=== PATIENT | female | born 1965 ===

== ENCOUNTER 2017-09-23 06:16 | Inpatient (IN) | payer OTHER ==
[~2017-09-23] VITALS: Ht 165.1 cm; Wt 86.6 kg
[2017-09-23] VITALS (12 sets, daily range): BP systolic 98–123; BP diastolic 17–75
[2017-09-23] MEDS ORDERED: Vancomycin 1gm inj IVPB ONE (07:07)
[2017-09-23] MEDS ORDERED: Bupivacaine 0.25% Inj 30ml INJ ONE (07:07)
[2017-09-23] MEDS ORDERED: Gelfoam Absorbable 1gm powder pkt TOPIC ONE (07:07)
[2017-09-23] MEDS ORDERED: Thrombin 5000 units TOPIC ONE (07:07)
[2017-09-23] MEDS ORDERED: Thrombin 5000 units spray kit TOPIC ONE (07:07)
[2017-09-23] MEDS ORDERED: Bacitracin 50000 Units Vial ONE (07:08)
[2017-09-23] MEDS ORDERED: OMEPRAZOLE40 M1 ORAL (07:24)
[2017-09-23] MEDS ORDERED: Sterile Water Irrig 1000ml IRRIG ONE (07:30)
[2017-09-23] MEDS ORDERED: Midazolam 2mg/2ml Inj ONE (07:30)
[2017-09-23] MEDS ORDERED: Glycopyrrolate 0.2mg/ml 1ml Vial ONE (07:30)
[2017-09-23] MEDS ORDERED: Neostigmine 1mg/ml 10ml Inj ONE (07:30)
[2017-09-23] MEDS ORDERED: Nimbex 2mg/ml Inj 10ML IVP ONE (07:30)
[2017-09-23] MEDS ORDERED: NS Irrig 1000ml ONE (07:30)
[2017-09-23] MEDS ORDERED: Propofol 200mg/20ml IV ONE (07:30)
[2017-09-23] MEDS ORDERED: Ketorolac 30mg Inj ONE (07:30)
[2017-09-23] MEDS ORDERED: LR 1000ml ONE (07:30)
[2017-09-23] MEDS ORDERED: Sodium Chloride 10ml vial INJ ONE (07:30)
[2017-09-23] MEDS ORDERED: fentaNYL 100 mcg/2 mL IV ONE (07:30)
[2017-09-23] MEDS ORDERED: Lidocaine 1% MPF 10mg/ml 5ml ONE (07:30)
[2017-09-23] MEDS ORDERED: Propofol 1,000mg/ 100ml btl IV ONE (07:30)
[2017-09-23] MEDS ORDERED: Succinylcholine 20mg/ml 10ml vial ONE (07:30)
--- NOTE | 2017-09-23 07:50 | Pre-Procedure Note/Attestation ---
Pre-Procedure Note/Attestation Complete Prior to Procedure Planned Procedure: right Procedure Narrative: L5-s1 decompression discectomy Indications for Procedure Pre-Operative Diagnosis: Lumbar disc hernia Attestation I attest that I discussed the nature of the procedure; its benefits; risks and complications; and alternatives (and the risks and benefits of such alternatives ), prior to the procedure, with the patient (or the patient's legal fraud representative). I attest that, if there was a reasonable possibility of needing a blood transfusion, the patient (or the patient's legal fraud representative) was given the [facility] standardized written summary, pursuant to the Yimi Emerson Blood Safety Act ([place] Health and Safety Code # 1645, as amended). I attest that I re-evaluated the patient just prior to the surgery and that there has been no change in the patient's H&P, except as documented below: JACQUES COLLADO Sep 23, 2017 07:50
[2017-09-23] MEDS ORDERED: Lidocaine 2% 20mg/ml/EPI 0.01mg/ml 20ml ONE (08:20)
[2017-09-23] MEDS ORDERED: LR 1000ml 1,000 ML IVLG SCH (08:58)
--- NOTE | 2017-09-23 08:58 | Anethesia Preoperative Eval ---
Anesthesia Pre-op PMH/ROS General Date of Evaluation: Sep 23, 2017 Time of Evaluation: 07:20 Anesthesiologist: Maxine ASA Score: ASA 3 Mallampati Score Class I : Soft palate, uvula, fauces, pillars visible Class II: Soft palate, uvula, fauces visible Class III: Soft palate, base of uvula visible Class IV: Only hard plate visible Mallampati Classification: Class II Surgeon: Tracey Diagnosis: Lumbar radiculopathy Surgical Procedure: L5- S1 laminotomy Anesthesia History: none Family History: no anesthesia problems Allergies: Coded Allergies: CITALOPRAM (Verified Allergy, Severe, hallucinations, 09/23/17) METOCLOPRAMIDE (Verified Allergy, Severe, hallucinations , 09/23/17) MORPHINE (Verified Allergy, Severe, hallucinations, 09/23/17) Past Medical History Cardiovascular: Denies: HTN, CAD, CT, valve dz, arrhythmia, other Pulmonary: Denies: asthma, COPD, BRYAN, other Gastrointestinal/Genitourinary: Reports: GERD, other - Rock esophagus, Denies: CRI, ESRD Neurologic/Psychiatric: Reports: depression/anxiety, other, Denies: dementia, CVA, TIA Endocrine: Denies: DM, hypothyroidism, steroids, other HEENT: Denies: cataract (L), cataract (R), glaucoma, RAMONA (L), RAMONA (R), other Hematology/Immune: Reports: anemia, Denies: DVT, bleeding disorder, other Musculoskeletal/Integumentary: Reports: DJD, Denies: OA, RA, DDD, edema, other Other: obesity PMH Narrative: as above PSxH Narrative: x3, partial and complete hysterectomy, GI procedures Anesthesia Pre-op Phys. Exam Physician Exam Last Vital Signs Date Time Temp Pulse Resp B/P (MAP) Pulse Ox O2 Delivery O2 Flow Rate FiO2 09/23/17 07:22 98.0 73 17 109/73 98 Room Air Constitutional: NAD Neurologic: CN 2-12 intact Cardiovascular: RRR Respiratory: CTA Gastrointestinal: other - obesity Airway Exam Mallampati Score: Class II MO: limited Neck: stiff ROM: limited Teeth: intact Dentures: no upper, no lower Anesthesia Pre-op A/P Labs see chart Studies Pre-op Studies: EKG - NSR Risk Assessment & Plan Assessment: ASA 3 Plan: GA with ETT prone position, neuromonitoring Status Change Before Surgery: No Pre-Antibiotics Drug: Ancef 2 gr. Given Within 1 Hr of Incision: Yes Time Given: 08:25 CLYDE SANCHEZ M.D. Sep 23, 2017 08:58
[2017-09-23] MEDS ORDERED: Bupivacaine 0.5% Inj 30 ml vial INJ ONE (08:59)
[2017-09-23] MEDS ORDERED: Meperidine 50mg/ml Inj(FOR RIGORS ONLY) IV PRN (09:00)
[2017-09-23] MEDS ORDERED: Midazolam 2mg/2ml Inj IVP PRN (09:00)
[2017-09-23] MEDS ORDERED: Ketorolac 30mg Inj IV PRN (09:00)
[2017-09-23] MEDS ORDERED: DiphenhydrAMINE 50mg/ml Inj IVP PRN (09:00)
[2017-09-23] MEDS ORDERED: Hydromorphone 0.5mg/0.5ml inj IVP PRN (09:00)
--- NOTE | 2017-09-23 10:25 | Brief Operative Note ---
Immediate Post Operative Note Operative Note Chief Complaint: Right LE pain/ disc hernia radiculopathy and back pain Pre-op Diagnosis: Lumbar disc hernia Procedure: Right L5-S1 disc hernia Post-op Diagnosis: Same Post-op Diagnosis: same as pre-op Findings: consistent w/pre-op dx studies, other Surgeon: Naseem Collado Tax Staff Accountant: Minal Lopez Anesthesia: general Specimen: none Complications: none Condition: stable Fluids: Per Anesthesia Record Estimated Blood Loss: minimal Drains: hemovac Implant(s) used?: No JACQUES COLLADO Sep 23, 2017 10:25
--- NOTE | 2017-09-23 10:50 | Immediate Post-Op Evaluation ---
Immediate Post-Op Evalulation Immediate Post-Op Evalulation Procedure: L5-S1 laminotomy with discectomy and decompression Date of Evaluation: Sep 23, 2017 Time of Evaluation: 10:49 IV Fluids: 1200 Blood Products: none Estimated Blood Loss: 50 Urinary Output: 150 Blood Pressure Systolic: 116 Blood Pressure Diastolic: 59 Pulse Rate: 86 Respiratory Rate: 20 O2 Sat by Pulse Oximetry: 99 Temperature (Fahrenheit): 97.7 Pain Score (1-10): 2 Nausea: No Vomiting: No Complications none Patient Status: reacts, patent, extubated, none Hydration Status: adequate CLYDE SANCHEZ M.D. Sep 23, 2017 10:50
[2017-09-23] MEDS ORDERED: Cyclobenzaprine 10mg Tab ORAL PRN (13:15)
[2017-09-23] MEDS ORDERED: Norco 5mg/325mg tab ORAL PRN (13:15)
[2017-09-23] MEDS: Hydromorphone 0.5mg/0.5ml inj SUBQ PRN ×3 (15:03→21:03)
--- NOTE | 2017-09-23 15:20 | Diagnostic Imaging Report ---
Indication: Pain, intraoperative images, right lower extremity pain Technique: Intraoperative imaging Comparison: none Findings: Single lateral intraoperative image demonstrates surgical tool's projected posterior to what is presumably the L5-S1 disc Impression: Intraoperative imaging, as described
[2017-09-23] MEDS: ceFAZolin sod 1 GM in D5W 55 ML IV SCH (16:14)
[2017-09-23] MEDS ORDERED: Milk of Magnesia 30ml Ud ORAL PRN (17:15)
[2017-09-23] MEDS: Docusate 100mg cap ORAL SCH (18:00)
[2017-09-23] MEDS ORDERED: Docusate 100mg/10ml Liq NG SCH (18:00)
[2017-09-23] MEDS ORDERED: Sennosides 8.6mg ORAL SCH (18:30)
[2017-09-23] MEDS ORDERED: Magnesium Citrate Liq Btl ORAL PRN (19:00)
[2017-09-23] MEDS ORDERED: TransDerm Scop 1mg/72HR Patch TDERMAL ONE (19:15)
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
[2017-09-24 00:27] VITALS: BP 92/58
[2017-09-24] MEDS: ceFAZolin sod 1 GM in D5W 55 ML IV SCH ×2 (00:32→08:00)
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
[2017-09-24 04:40] VITALS: BP 95/59
[2017-09-24] MEDS: Hydromorphone 0.5mg/0.5ml inj SUBQ PRN ×2 (05:23→13:21)
[2017-09-24 08:00] VITALS: BP 100/63
[2017-09-24] MEDS: Docusate 100mg cap ORAL SCH (09:14)
[2017-09-24] MEDS ORDERED: Sennosides 8.6mg ORAL SCH (09:30)
[2017-09-24 12:00] VITALS: BP 118/68
[2017-09-24] MEDS ORDERED: NORCO 10-325 T1 EACH ORAL ×2 (12:47→12:48)
--- NOTE | 2017-09-24 14:14 | 48 Hour Post Anesthesia Eval ---
Post Anesthesia Evaluation Procedure: L5-S1 laminotomy with discectomy and decompression Date of Evaluation: Sep 24, 2017 Time of Evaluation: 14:12 Blood Pressure Systolic: 109 0: 76 Pulse Rate: 72 Respiratory Rate: 20 Temperature (Fahrenheit): 97.6 O2 Sat by Pulse Oximetry: 98 Airway: patent Nausea: No Vomiting: No Pain Intensity: 2 Hydration Status: adequate Cardiopulmonary Status: stable Mental Status/LOC: patient returned to baseline Follow-up Care/Observations: n/a Post-Anesthesia Complications: none Follow-up care needed: ready to discharge CLYDE SANCHEZ M.D. Sep 24, 2017 14:14
[2017-09-24 16:00] VITALS: BP 160/98
--- NOTE | 2017-09-24 16:30 | Progress Note ---
DATE: 09/24/2017 ACUTE PAIN MANAGEMENT PHYSICIAN PROGRESS NOTE MEDICATIONS: Medication administration record reviewed. Medications include IV fluids, Colace, Protonix, Senokot, and antibiotics. P.r.n. medications include Benadryl, Zofran, Dilaudid, [place], Flexeril, Mylanta, Phenergan, and magnesium citrate. LABORATORY STUDIES: No interval laboratory studies. OBJECTIVE: VITAL SIGNS: Afebrile, pulse 77, respirations 18, blood pressure 96/60, and oxygen saturation 99% on room air. I spent over 60 minutes in consultation today. I saw the patient at bedside with the and the nurse, José, who interpreted, Sinhala. I also spoke with the surgeon, Dr. Almanza, in detail. Overnight, the patient had a mild episode of nausea, but currently has no nausea or emesis symptoms. She remains on IV fluids and has only mildly drunk fluids. I will continue her IV fluids now and we will see how she tolerates her breakfast. The patient is able to move from [id number] in the bed. She will ambulate with physical therapy later today. She did not walk overnight and has been using a bedpan, voiding urine well. Output from the indwelling lumbar spine drain catheter overnight was less than 20 mL. The patient denies any short of breath or chest pain. The patient has been using a low dose Dilaudid with good analgesic efficacy. I did have left multiple prescriptions with her for [place] as the patient is having difficulty obtaining the pain medication prescription at the outpatient pharmacy. I did instruct her to drop-off the prescription at the local [facility] pharmacy in [place] near the home in [place]. At this time, we will see if the local outpatient hospital pharmacy can fill a small prescription of York in the interim. The patient was turned to the left lateral decubitus position with the nurse RN, José, at the bedside as a clinical informatics physician. I cut the suture holding in the indwelling lumbar spine drain catheter. Drain site and incision line appeared clean and dry with no evidence for erythema or exudate. With the Hemovac drain taken off of suction and at the end-expiration, I personally removed the indwelling lumbar spine drain catheter. The tip was intact. Alcohol swabbing was applied generously to the drain hole site. Sterile gauze was then applied to the drain hole site followed by a large 6 x 6 [place] Bordered Gauze dressing applied to the drain hole site and incision. There were no complications. I did encourage continued aggressive use of incentive spirometer. I would expect a discharge from the hospital later today after the patient ambulates and tolerates advancing diet. Abraham Awan M.D. DR: PIOTR JOB#: [id number] CC:
[2017-09-24] MEDS ORDERED: Tubing IV Secondary IV ONE (16:52)
--- NOTE | 2017-09-24 17:30 | Discharge Summary ---
DATE OF ADMISSION: 09/23/2017 DATE OF DISCHARGE: 09/24/2017 ADMITTING DIAGNOSIS: Lumbar spine disc herniation with radiculopathy. DISCHARGE DIAGNOSIS: Lumbar spine disc herniation with radiculopathy. ADMITTING PHYSICIAN AND SURGEON: Emery Almanza M.D. CONSULTING PHYSICIAN: Abraham Awan M.D., Pain Management. HOSPITAL COURSE: The patient was admitted on 09/23/2017 for elective lumbar spine decompressive surgery. The patient underwent lumbar spine surgery with Dr. Almanza without complications. The patient was moved from the operating room to the recovery room without difficulty. The patient had normal vital signs and was transferred to the orthopedic recovery floor. Standard vital signs and monitoring occurred. The patient was seen by physical therapy. The patient is voiding urine well and tolerating advancing diet. On postoperative day #1, the lumbar spine Hemovac drain was removed without complications. The patient's pain control was adequate and prescriptions were left for outpatient usage. The patient was discharged to home to the care of her and will follow up with Dr. Almanza in the outpatient clinic. There were no complications. Abraham Awan M.D. DR: JOYCE JOB#: [id number] CC:
== END 2017-09-24 15:15 | disposition home or self-care (01) | DRG 465 ==
LOC: SDSOVERFLO 06:16 → 3E 12:10
PROC: 0SB20ZZ Excision of Lumbar Vertebral Disc, Open Approach (ICD-10-PCS; principal; 2017-09-23 07:30)
PROC: 0SB40ZZ Excision of Lumbosacral Disc, Open Approach (ICD-10-PCS; principal; 2017-09-23 07:30)
PROC: 0JU737Z Supplement of Back Subcutaneous Tissue and Fascia with Autologous Tissue Substitute, Percutaneous Approach (ICD-10-PCS; principal; 2017-09-23 07:30)
PROC: F01 Physical Rehabilitation and Diagnostic Audiology, Rehabilitation, Motor and/or Nerve Function Assessment (ICD-10-PCS; principal; 2017-09-23 07:30)
PROC: 0JB70ZZ Excision of Back Subcutaneous Tissue and Fascia, Open Approach (ICD-10-PCS; principal; 2017-09-23 07:30)
PROC: 01NB0ZZ Release Lumbar Nerve, Open Approach (ICD-10-PCS; principal; 2017-09-23 07:30)
DX: M51.16 Intervertebral disc disorders with radiculopathy, lumbar region (principal); E66.9 Obesity, unspecified; M51.17 Intervertebral disc disorders with radiculopathy, lumbosacral region; K21.9 Gastro-esophageal reflux disease without esophagitis; R11.2 Nausea with vomiting, unspecified; G89.18 Other acute postprocedural pain; Z90.710 Acquired absence of both cervix and uterus; Z68.31 Body mass index [BMI] 31.0-31.9, adult
CPT/HCPCS: 36415; 72020; 76001; 86850; 86900; 86901; 87081; 94003; 94150; J2250; J2405; J2710